=== PATIENT | female | born 1945 | race Caucasian/White ===

== ENCOUNTER 2024-04-04 00:06 | Inpatient (IN) | payer MEDICARE, OTHER ==
[~2024-04-04] VITALS: Ht 152.4 cm; Wt 54.0 kg
[2024-04-04] MEDS: FUROSEMIDE 40 MG/4 ML VIAL IV ONE (00:30)
[2024-04-04 00:49] LABS: BASOPHILS % (AUTO) 0.4 % (0.0-2.0); EOSINOPHILS # (AUTO) 0.1 K/uL (0.0-0.7); EOSINOPHILS % (AUTO) 0.6 % (0.0-7.0); HEMATOCRIT 45.7 % (31.2-41.9); HEMOGLOBIN 14.6 g/dL (10.9-14.3); LYMPHOCYTES # (AUTO) 1.2 K/uL (0.8-4.8); LYMPHOCYTES % (AUTO) 10.3 % (20.5-51.5); MEAN CORPUSCULAR HEMOGLOBIN 27.2 uug (24.7-32.8); MEAN CORPUSCULAR HGB CONC 32 g/dL (32.3-35.6); MONOCYTES # (AUTO) 0.5 K/uL (0.1-1.30); MONOCYTES % (AUTO) 4.6 % (0.0-11.0); NEUTROPHILS # (AUTO) 9.8 K/uL (1.8-8.9); NEUTROPHILS % (AUTO) 84.1 % (38.5-71.5); PLATELET COUNT (AUTO) 179 K/uL (179-408); RED BLOOD CELL COUNT(AUTO) 5.37 MIL/uL (3.63-4.92); RED CELL DISTRIBUTION WIDTH 17.1 % (12.3-17.7); WHITE BLOOD COUNT (AUTO) 11.7 K/uL (3.8-11.8)
[2024-04-04 00:51] LABS: DIFFERENTIAL COMMENT 1
[2024-04-04 01:25] LABS: CALCIUM 9.9 mg/dL (8.5-10.1); CARBON DIOXIDE 21 mmol/L (21-32); CHLORIDE 104 mmol/L (98-107); CREATININE 2.2 mg/dL (0.6-1.3); GLUCOSE 151 mg/dL (74-106); POTASSIUM 5.6 mmol/L (3.5-5.1); SODIUM SERUM 139 mmol/L (136-145); UREA NITROGEN, BLOOD 63 mg/dL (7-18)
[2024-04-04 01:33] LABS: *BILIRUBIN,URIN NEGATIVE (NEGATIVE); *BLOOD, URINE NEGATIVE (NEGATIVE); *CLARITY,URINE CLEAR (CLEAR); *COLOR,URINE YELLOW (YELLOW); *KETONES,URINE NEGATIVE (NEGATIVE); *PROTEIN,URINE NEGATIVE (NEGATIVE); *UROBILINOGEN,URINE 0.2 E.U./dl (NORMAL); LEUKOCYTE ESTERASE ,URINE TRACE (NEGATIVE); NITRITE, URINE NEGATIVE (NEGATIVE); PH,URINE 5.5 (5.0-8.0)
[2024-04-04] MEDS ORDERED: FUROSEMIDE 40 MG/4 ML VIAL ONE (01:33)
[2024-04-04 01:36] LABS: UGLUCOSE 2+ (NEGATIVE)
[2024-04-04 01:38] LABS: ALANINE AMINOTRANSFERASE 17 U/L (14-59); ALBUMIN 3.9 g/dL (3.4-5.0); ALKALINE PHOSPHATASE 85 U/L (50-136); ASPARTATE AMINOTRANSFERASE 18 U/L (15-37); BILIRUBIN,TOTAL 0.5 mg/dL (0.2-1.0); NT-PRO BNP 6064 pg/mL (0-125)
[2024-04-04 02:02] LABS: BACTERIA,URINE NONE SEEN /HPF (NONE SEEN); RBC,URINE NONE SEEN /HPF (0-3); SQUAMOUS EPITHELIAL CELL,UR FEW /HPF (NONE SEEN); WBC,URINE 0-3 /HPF (0-3)
[2024-04-04] MEDS ORDERED: ACETAMINOPHEN 325 MG TABLET PO PRN (03:00)
[2024-04-04] MEDS ORDERED: ONDANSETRON 4 MG/2 ML VIAL IV PRN (03:00)
[2024-04-04] MEDS ORDERED: LEVO75TA PO (03:07)
[2024-04-04] MEDS ORDERED: LISI-782 PO (03:07)
[2024-04-04] MEDS ORDERED: SPIR25TA6 PO (03:07)
[2024-04-04] MEDS ORDERED: DAPA10TA PO (03:07)
[2024-04-04] MEDS ORDERED: FURO20TA4 PO (03:07)
[2024-04-04] MEDS ORDERED: GABA-532 PO (03:07)
[2024-04-04] MEDS ORDERED: METF-494 PO (03:07)
[2024-04-04] MEDS ORDERED: FOLI1TAB2 PO (03:07)
[2024-04-04] MEDS ORDERED: CLOP75TA15 PO (03:07)
[2024-04-04] MEDS ORDERED: PANT40TA49 PO (03:07)
[2024-04-04] MEDS ORDERED: METO25TA3 PO (03:07)
[2024-04-04] MEDS ORDERED: SIMV-46 PO (03:07)
[2024-04-04] MEDS ORDERED: SODIUM POLYSTYRENE SULFONATE 15 G/60 ML LIQUID UDC ONE (03:40)
[2024-04-04] MEDS: SODIUM POLYSTYRENE SULFONATE 15 G/60 ML LIQUID UDC PO ONE (03:51)
[2024-04-04] MEDS: SODIUM BICARBONATE 8.4% 50 MEQ/50 ML DISP.SYRIN IV ONE (06:30)
[2024-04-04] MEDS: CALCIUM GLUCONATE IV 1 GM in IV DEXTROSE 5% 50 ML IV ONE (06:30)
[2024-04-04 08:00] VITALS: BP 127/40; TEMP 97.7; O2SAT 93
[2024-04-04 08:50] LABS: BASOPHILS % (AUTO) 0.4 % (0.0-2.0); EOSINOPHILS % (AUTO) 0.2 % (0.0-7.0); HEMATOCRIT 40.8 % (31.2-41.9); HEMOGLOBIN 13.4 g/dL (10.9-14.3); LYMPHOCYTES # (AUTO) 1.1 K/uL (0.8-4.8); LYMPHOCYTES % (AUTO) 13.1 % (20.5-51.5); MEAN CORPUSCULAR HEMOGLOBIN 27.6 uug (24.7-32.8); MEAN CORPUSCULAR HGB CONC 33 g/dL (32.3-35.6); MEAN CORPUSCULAR VOLUME 83.7 fL (75.5-95.3); MONOCYTES # (AUTO) 0.6 K/uL (0.1-1.30); MONOCYTES % (AUTO) 6.7 % (0.0-11.0); NEUTROPHILS # (AUTO) 6.7 K/uL (1.8-8.9); NEUTROPHILS % (AUTO) 79.6 % (38.5-71.5); PLATELET COUNT (AUTO) 189 K/uL (179-408); RED BLOOD CELL COUNT(AUTO) 4.87 MIL/uL (3.63-4.92); RED CELL DISTRIBUTION WIDTH 17.3 % (12.3-17.7); WHITE BLOOD COUNT (AUTO) 8.4 K/uL (3.8-11.8)
[2024-04-04 08:51] LABS: DIFFERENTIAL COMMENT 1
[2024-04-04 08:58] LABS: CALCIUM 9.6 mg/dL (8.5-10.1); CARBON DIOXIDE 22 mmol/L (21-32); CHLORIDE 109 mmol/L (98-107); CREATININE 1.9 mg/dL (0.6-1.3); GLUCOSE 132 mg/dL (74-106); MAGNESIUM 2.6 mg/dL (1.8-2.4); POTASSIUM 5.1 mmol/L (3.5-5.1); SODIUM SERUM 144 mmol/L (136-145); UREA NITROGEN, BLOOD 61 mg/dL (7-18)
[2024-04-04] MEDS: HEPARIN SODIUM,PORCINE 5,000 UNITS/ML VIAL SQ SCH (09:00)
[2024-04-04] MEDS: PANTOPRAZOLE SODIUM 40 MG TABLET.DR PO SCH (09:41)
[2024-04-04] MEDS: FUROSEMIDE 40 MG/4 ML VIAL IV SCH (09:41)
[2024-04-04] MEDS: ASPIRIN EC 81 MG TABLET.DR PO SCH (09:41)
[2024-04-04] MEDS ORDERED: METF-440 PO (10:30)
[2024-04-04] MEDS ORDERED: MULTIVITS MIN PO SCH (10:45)
[2024-04-04] MEDS ORDERED: [UNRECOGNIZED DRUG - OTHER] PO SCH (10:45)
[2024-04-04] MEDS: METOPROLOL SUCCINATE XL 25 MG TAB.SR.24H PO SCH (10:45)
[2024-04-04] MEDS ORDERED: METFORMIN HCL 500 MG TABLET PO SCH (10:45)
[2024-04-04] MEDS ORDERED: FOLIC ACID PO SCH (10:45)
[2024-04-04] MEDS ORDERED: LUT PO SCH (10:45)
[2024-04-04] MEDS: LEVOTHYROXINE SODIUM 75 MCG TABLET PO SCH (11:36)
[2024-04-04] MEDS: DAPAGLIFLOZIN PROPANEDIOL 5 MG TABLET PO SCH (11:36)
[2024-04-04] MEDS: CLOPIDOGREL 75 MG TABLET PO SCH (11:39)
[2024-04-04 12:00] VITALS: BP 98/25; TEMP 98.7; O2SAT 95
[2024-04-04] MEDS ORDERED: INSULIN REGULAR, HUMAN 1000 UNIT/10 ML VIAL SQ SCH (12:45)
[2024-04-04] MEDS ORDERED: DEXTROSE 50% 50 ML DISP.SYRIN IV PRN (13:00)
[2024-04-04] MEDS ORDERED: INSULIN REGULAR, HUMAN 1000 UNIT/10 ML VIAL SQ PRN (13:00)
[2024-04-04] MEDS: BLOOD SUGAR DIAGNOSTIC 1 EACH STRIP VI SCH (13:23)
[2024-04-04 16:00] VITALS: BP 112/27; TEMP 97.9; O2SAT 95
[2024-04-04] MEDS: FUROSEMIDE 20 MG/2 ML VIAL IV SCH (16:43)
[2024-04-04] MEDS ORDERED: LISINOPRIL 5 MG TABLET PO SCH (18:00)
[2024-04-04 19:00] VITALS: BP 123/37; TEMP 97.9; O2SAT 94
[2024-04-04 19:02] LABS: *BILIRUBIN,URIN NEGATIVE (NEGATIVE); *BLOOD, URINE NEGATIVE (NEGATIVE); *CLARITY,URINE CLEAR (CLEAR); *COLOR,URINE YELLOW (YELLOW); *KETONES,URINE NEGATIVE (NEGATIVE); *PROTEIN,URINE NEGATIVE (NEGATIVE); *UROBILINOGEN,URINE 0.2 E.U./dl (NORMAL); LEUKOCYTE ESTERASE ,URINE NEGATIVE (NEGATIVE); NITRITE, URINE NEGATIVE (NEGATIVE); PH,URINE 5.5 (5.0-8.0); UGLUCOSE TRACE (NEGATIVE)
[2024-04-04 19:10] LABS: *CREATININE,URINE 33.9 mg/dL (30-125); *SODIUM RNDM,URINE 109 mmol/L (40-220)
[2024-04-04 19:19] LABS: *URINE TOTAL PROTEIN RANDOM < 6.0 mg/dL (<150/24HR)
[2024-04-04 19:24] LABS: BACTERIA,URINE NONE SEEN /HPF (NONE SEEN); RBC,URINE NONE SEEN /HPF (0-3); SQUAMOUS EPITHELIAL CELL,UR FEW /HPF (NONE SEEN); WBC,URINE 0-3 /HPF (0-3)
[2024-04-04] MEDS ORDERED: FUROSEMIDE 40 MG/4 ML VIAL IV SCH (21:00)
[2024-04-04] MEDS ORDERED: FUROSEMIDE 20 MG/2 ML VIAL IVP SCH (21:00)
[2024-04-04] MEDS: GABAPENTIN 100 MG CAPSULE PO SCH (21:20)
[2024-04-04] MEDS: SIMVASTATIN 20 MG TABLET PO SCH (21:20)
[2024-04-05] VITALS: BP 126/38; TEMP 97.8; O2SAT 95
[2024-04-05 04:00] VITALS: BP 118/30; TEMP 97.7; O2SAT 100
[2024-04-05 07:00] LABS: BASOPHILS % (AUTO) 0.7 % (0.0-2.0); EOSINOPHILS # (AUTO) 0.1 K/uL (0.0-0.7); EOSINOPHILS % (AUTO) 1.5 % (0.0-7.0); HEMATOCRIT 39.1 % (31.2-41.9); HEMOGLOBIN 13.3 g/dL (10.9-14.3); LYMPHOCYTES # (AUTO) 1.5 K/uL (0.8-4.8); MEAN CORPUSCULAR HEMOGLOBIN 28.4 uug (24.7-32.8); MEAN CORPUSCULAR HGB CONC 34 g/dL (32.3-35.6); MEAN CORPUSCULAR VOLUME 83.2 fL (75.5-95.3); MONOCYTES # (AUTO) 0.7 K/uL (0.1-1.30); MONOCYTES % (AUTO) 12.1 % (0.0-11.0); NEUTROPHILS # (AUTO) 3.7 K/uL (1.8-8.9); NEUTROPHILS % (AUTO) 60.7 % (38.5-71.5); PLATELET COUNT (AUTO) 172 K/uL (179-408); RED CELL DISTRIBUTION WIDTH 17.3 % (12.3-17.7); WHITE BLOOD COUNT (AUTO) 6.2 K/uL (3.8-11.8)
[2024-04-05 07:10] LABS: DIFFERENTIAL COMMENT 1
[2024-04-05 07:28] LABS: ALANINE AMINOTRANSFERASE 17 U/L (14-59); ALBUMIN 3.4 g/dL (3.4-5.0); ALKALINE PHOSPHATASE 74 U/L (50-136); ASPARTATE AMINOTRANSFERASE 17 U/L (15-37); BILIRUBIN,DIRECT 0.2 mg/dL (0.0-0.2); BILIRUBIN,TOTAL 0.7 mg/dL (0.2-1.0); CALCIUM 9.3 mg/dL (8.5-10.1); CARBON DIOXIDE 25 mmol/L (21-32); CHLORIDE 104 mmol/L (98-107); CREATININE 2.2 mg/dL (0.6-1.3); GLUCOSE 116 mg/dL (74-106); MAGNESIUM 2.5 mg/dL (1.8-2.4); NT-PRO BNP 8255 pg/mL (0-125); PHOSPHOROUS 4.7 mg/dL (2.5-4.9); SODIUM SERUM 141 mmol/L (136-145); UREA NITROGEN, BLOOD 59 mg/dL (7-18)
[2024-04-05 07:37] VITALS: BP 123/35; TEMP 98.2; O2SAT 95
[2024-04-05 08:22] VITALS: BP 101/35
[2024-04-05] MEDS: MULTIVIT, IRON, MIN NO. 8, FA TABLET PO SCH (08:27)
[2024-04-05 13:54] LABS: CREATINE KINASE, TOTAL 53 U/L (26-192)
[2024-04-07 04:06] LABS: PTH, INTACT 64 pg/mL (15-65)
[2024-04-10 06:07] LABS: ALPHA-1-GLOBULIN 0.3 g/dL (0.0-0.4); ALPHA-2-GLOBULIN 0.8 g/dL (0.4-1.0); BETA GLOBULIN 1.2 g/dL (0.7-1.3); GAMMA GLOBULIN 0.8 g/dL (0.4-1.8); GLOBULIN, TOTAL 3.1 g/dL (2.2-3.9); M-SPIKE Not Observed g/dL (Not Observed); PROTEIN, TOTAL 6.1 g/dL (6.0-8.5)
== END 2024-04-05 12:00 | disposition home or self-care (01) | DRG 291 ==
LOC: ER 00:12 → TELE3 02:58
PROVIDERS: ADMIT Nurse Practitioner Family; ATTEND Nurse Practitioner Family
PROC: 05HB33Z Insertion of Infusion Device into Right Basilic Vein, Percutaneous Approach (ICD-10-PCS; principal; 2024-04-04)
DX: I13.0 Hypertensive heart and chronic kidney disease with heart failure and stage 1 through stage 4 chronic kidney disease, or unspecified chronic kidney disease (principal); I50.23 Acute on chronic systolic (congestive) heart failure; J96.00 Acute respiratory failure, unspecified whether with hypoxia or hypercapnia; N17.9 Acute kidney failure, unspecified; I42.9 Cardiomyopathy, unspecified; E87.5 Hyperkalemia; E03.9 Hypothyroidism, unspecified; Z95.2 Presence of prosthetic heart valve; Z88.0 Allergy status to penicillin; Z95.810 Presence of automatic (implantable) cardiac defibrillator; Z91.148 Patient's other noncompliance with medication regimen for other reason; E11.22 Type 2 diabetes mellitus with diabetic chronic kidney disease; N18.9 Chronic kidney disease, unspecified; I25.10 Atherosclerotic heart disease of native coronary artery without angina pectoris; E83.41 Hypermagnesemia; E78.5 Hyperlipidemia, unspecified; Z79.84 Long term (current) use of oral hypoglycemic drugs; Z79.890 Hormone replacement therapy
CPT/HCPCS: 36415; 71045; 76770; 83735; 83970; 84100; 84155; 84165; 84300; 84484; 85025; 93307; A4606; A4663; G0378; J0610; J1644; J1815; J1940